=== PATIENT | female | born 1945 | race Caucasian/White ===

== ENCOUNTER 2020-09-26 05:15 | Emergency (ER) | payer MEDICARE, SELFPAY ==
[~2020-09-26] VITALS: Ht 134.6 cm; Wt 78.0 kg
[2020-09-26 05:20] VITALS: BP_SYST 187
--- NOTE | 2020-09-26 05:20 | NUR ---
Placed in room 3 . Placed on display trimmer, blood pressure machine and pulse oximeter. To gown for exam. Side rails up. Report given to GUTIERREZ BURNETT.
--- NOTE | 2020-09-26 05:23 | NUR ---
Patient BIB by ALS/EMT. C/O Altered Mental Status x today. Per reported,after patient woke up, confused, agitation (per family reported), Awake, confused, denies pain, place patient on lung puller and pulse ox. Hx Dialysis (Sat-Sat-Sat), HTN and shingles.
--- NOTE | 2020-09-26 05:38 | NUR ---
ER Dr. Shafer at bedside examining patient.
--- NOTE | 2020-09-26 05:45 | NUR ---
X-ray at bedside.
--- NOTE | 2020-09-26 06:20 | NUR ---
Patient came back from CT scan via [facility] with RT and RN.
--- NOTE | 2020-09-26 06:30 | NUR ---
Swabs COVID-19 and send to lab.
--- NOTE | 2020-09-26 06:35 | NUR ---
# 20 gauge angiocath placed to RT AC. Use of asceptic technique. Opsite placed over site. Blood return noted. Blood for lab drawn from site. Flushed with 10 cc of normal saline. No evidence of infiltration noted. Patient tolerated well.
[2020-09-26 06:56] LABS: BASOPHILS % (AUTO) 0.3 % (0.0-2.0); EOSINOPHILS # (AUTO) 0.1 K/uL (0.0-0.4); EOSINOPHILS % (AUTO) 0.4 % (0.0-4.0); HEMATOCRIT 32.5 % (36-48); HEMOGLOBIN 10.8 g/dL (12.0-16.0); LYMPHOCYTES # (AUTO) 1.3 K/uL (1.0-5.5); LYMPHOCYTES % (AUTO) 8.5 % (20.5-51.5); MEAN CORPUSCULAR HEMOGLOBIN 33 pg (27-31); MEAN CORPUSCULAR HGB CONC 33 % (32-36); MEAN CORPUSCULAR VOLUME 99 fL (79.0-98.0); MONOCYTES # (AUTO) 0.8 K/uL (0.0-1.0); MONOCYTES % (AUTO) 5.1 % (1.7-9.3); NEUTROPHILS % (AUTO) 85.7 % (40.0-70.0); PLATELET COUNT (AUTO) 334 K/uL (130-430); RED BLOOD CELL COUNT(AUTO) 3.28 MIL/uL (4.2-6.2); RED CELL DISTRIBUTION WIDTH 15.7 % (9.0-15.0); WHITE BLOOD COUNT (AUTO) 15.2 K/uL (4.8-10.8)
--- NOTE | 2020-09-26 07:03 | NUR ---
Spoke with patient's daughter (Maty) to update status.
--- NOTE | 2020-09-26 07:05 | NUR ---
Report from [facility]
[2020-09-26 07:17] LABS: PROTHROMBIN TIME 9.8 SECS (9.5-12.5)
--- NOTE | 2020-09-26 07:40 | NUR ---
ER Dr. Pavon at bedside examining patient.
[2020-09-26 08:04] LABS: ANION GAP 15 (5-15); CALCIUM 9.3 mg/dL (8.4-11.0); CHLORIDE 96 mmol/L (98-107); GLUCOSE 161 mg/dL (70-99); POTASSIUM 4.6 mmol/L (3.5-5.1); SODIUM SERUM 135 mmol/L (136-145); UREA NITROGEN, BLOOD 76 mg/dL (8-21)
--- NOTE | 2020-09-26 08:05 | NUR ---
Patient repositioned and swallow eval completed.
[2020-09-26 08:07] LABS: CREATININE 7.97 mg/dL (0.55-1.30)
[2020-09-26 08:20] LABS: ALANINE AMINOTRANSFERASE 15 U/L (12-78); ASPARTATE AMINOTRANSFERASE 9 U/L (10-37); FREE T4 (FREE THYROXINE) 1.2 ng/dl (0.8-1.5); THYROID STIMULATING HORMONE 1.01 uIu/mL (0.36-3.74); TOTAL BILIRUBIN 0.3 mg/dL (0.0-1.0)
[2020-09-26 08:23] LABS: ACETAMINOPHEN < 1 ug/mL (1-30); ALCOHOL, BLOOD < 3 mg/dL (<10)
[2020-09-26] MEDS ORDERED: HALOPERIDOL LACTATE 5 MG/ML VIAL IVP ONE (10:15)
--- NOTE | 2020-09-26 10:15 | NUR ---
PT awake and yelling. Re-oriented patient to hospital and treatment. Repositioned in [facility], given warm blanket.
--- NOTE | 2020-09-26 12:00 | NUR ---
Patient sleeping in [facility]
--- NOTE | 2020-09-26 12:06 | NUR ---
Patient to be transferred to [facility]. Is being transferred due to higher level of care. Receiving facility has accepting physician and available space. ER physician has signed transfer form. Patient or responsible alliance party has agreed to transfer and signed form. Patient belongings inventoried and will be sent with patient. Copy of nursing notes, lab reports, EKG, Physicians Orders and X-rays to be sent with patient. Report called to [place] at receiving facility. Receiving physician is Dr. Garza. ambulance service has been called for transfer.
[2020-09-26 12:07] VITALS: BP_SYST 174
== END 2020-09-26 12:06 | disposition short-term general hospital (02) ==
LOC: SED 05:15
DX: G93.40 Encephalopathy, unspecified (principal); D72.829 Elevated white blood cell count, unspecified; Z20.828 Contact with and (suspected) exposure to other viral communicable diseases
CPT/HCPCS: 36415; 70450; 71045; 76376; 80053; 82140; 82550; 83605; 84439; 84443; 84484; 85025; 85610; 85730; 87040; 87426; 93005; 96374; 99285; G0480; G0482; J1630